=== PATIENT | male | born 1970 | race Caucasian/White ===

== ENCOUNTER 2017-09-20 06:48 | Emergency (ER) | payer BC, OTHER ==
[2017-09-20] MEDS ORDERED: NS 0.9% 1000 ML* 1,000 ML IV ONE (07:08)
[2017-09-20] MEDS ORDERED: Morphine VIAL* 4 MG/ML VIAL (1 ml vial) IV ONE (07:10)
[2017-09-20] MEDS ORDERED: Iodixanol* (CONTRAST) 320 MG/ML 100 ML SDV IV ONE (08:01)
[2017-09-20 08:04] LABS: ABS Basophils 0 10^3/ul (0-0.2); ABS Eosinophils 0.2 10^3/ul (0-0.6); ABS Lymphocytes 2.2 10^3/ul (1.0-4.8); ABS Neutrophils 6.5 10^3/ul (1.5-7.7); ABS Nucleated RBC 0 10^3/ul; Eosinophil % 2.2 % (0-6); Hematocrit 51 % (42-52); Hemoglobin 17.7 g/dl (14.0-18.0); Lymphocyte % 22.1 % (25-47); Mean Corpuscular HGB Conc 35 g/dl (31-36); Mean Corpuscular Hemoglobin 33 pg (27-31); Mean Corpuscular Volume 94 fL (80-94); Mean Platelet Volume 8.7 um3 (7.4-10.4); Nucleated Red Blood Cells % 0.2; Platelet Count 235 10^3/ul (150-450); Red Blood Count 5.38 10^6/ul (4.00-5.40); Red Cell Distribution Width 14 % (10.5-15); White Blood Count 9.9 10^3/ul (3.5-10.8)
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
[2017-09-20 09:07] LABS: Urine Appearance Clear; Urine Blood Negative (Negative); Urine Color Yellow; Urine Ketones Negative (Negative); Urine Protein Negative (Negative); Urine Specific Gravity 1.021 (1.010-1.030); Urine Urobilinogen Negative (Negative)
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
[2017-09-20] MEDS ORDERED: Ketorolac INJ* 30 MG/ML 1 ML VIAL IV PUSH ONE (10:01)
[2017-09-20 10:34] VITALS: BP 112/70
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
== END 2017-09-20 10:32 | disposition home or self-care (01) ==
LOC: ED 06:48
DX: M54.9 Dorsalgia, unspecified (principal); Z04.1 Encounter for examination and observation following transport accident; M25.511 Pain in right shoulder; M79.604 Pain in right leg; M50.90 Cervical disc disorder, unspecified, unspecified cervical region; M51.37 Other intervertebral disc degeneration, lumbosacral region; M43.06 Spondylolysis, lumbar region
CPT/HCPCS: 36415; 70450; 71260; 72125; 72128; 72131; 74177; 80053; 80307; 80320; 81003; 82550; 83605; 85025; 93005; 96361; 96374; 99283; G0480; J1885; J2270; Q9967

== ENCOUNTER 2018-08-20 13:27 | Emergency (ER) | payer BC, OTHER ==
[2018-08-20] MEDS ORDERED: Ibuprofen TAB* 600 MG PO ONE (13:36)
--- NOTE | 2018-08-20 13:43 | ED ---
Lower Extremity - HPI Summary HPI Summary: Patient is a 48 y/o male who presents to the ED c/o knee pain. Yesterday his 100 lb dog ran full-speed into the patients left kneecap, while he was standing with all his weight on his LLE. Patient today has left knee pain and swelling, rated a 7/10 in severity. Pain is constant. He is not able to bear weight on his leg. He denies any bruising to the knee. Patient denies the use of blood thinners. PMSHx back problems, arthroscopic left knee surgery. - History of Current Complaint Chief Complaint: EDExtremityLower Stated Complaint: POSS SPRAINED KNEE PER PT Time Seen by Provider: 08/20/18 13:34 Hx Obtained From: Patient Mechanism Of Injury: Other - dog ran into knee Onset of Pain: Days - Yesterday Severity Currently: Moderate Pain Intensity: 7 Pain Scale Used: 0-10 Numeric Timing: Constant Location: Is Discrete @ - left knee Associated Signs And Symptoms: Positive: Swelling, Knee Pain Able to Bear Weight: No - Allergies/Home Medications Allergies/Adverse Reactions: Allergies Allergy/AdvReac Type Severity Reaction Status Date / Time No Known Allergies Allergy Verified 08/20/18 13:32 Home Medications: Home Medications Gabapentin 300 mg PO BID 08/20/18 [History Confirmed 08/20/18] PMH/Surg Hx/FS Hx/Imm Hx Endocrine/Hematology History: Denies: Hx Diabetes Cardiovascular History: Denies: Hx Hypertension Musculoskeletal History: Reports: Hx Back Problems, Other Musculoskeletal History - "hole in cartilage behind left patella" - Surgical History Surgery Procedure, Year, and Place: arthroscopic left knee Infectious Disease History: No Infectious Disease History: Denies: Traveled Outside the [place] in Last 30 Days - Family History Known Family History: Negative: Cardiac Disease - Social History Alcohol Use: None Hx Substance Use: No Substance Use Type: Reports: None Hx Tobacco Use: No Smoking Status (MU): Never Smoked Tobacco Review of Systems Positive: Arthralgia - L knee, Edema - L knee Negative: Bruising All Other Systems Reviewed And Are Negative: Yes Physical Exam - Summary Physical Exam Summary: Appearance: well appearing, no pain distress, disheveled Skin: warm, dry, reflects adequate perfusion, left knee warmth, small effusion seen medial to left knee, wounds on left forearm Head/face: normal Eyes: EOMI, JESUS ENT: mucous membranes moist Neck: supple, non-tender Respiratory: CTA, breath sounds present Cardiovascular: RRR, pulses symmetrical Abdomen: non-tender, soft Bowel Sounds: present Musculoskeletal: strength/ROM intact, lots of pain with ligamentous exam of left knee Neuro: normal, sensory motor intact, A&Ox3 Triage Information Reviewed: Yes Vital Signs On Initial Exam: Initial Vitals Temp Pulse Resp BP Pulse Ox 98.8 F 102 18 125/87 98 08/20/18 13:29 08/20/18 13:29 08/20/18 13:29 08/20/18 13:29 08/20/18 13:29 Vital Signs Reviewed: Yes Diagnostics - Vital Signs Vital Signs Temp Pulse Resp BP Pulse Ox 08/20/18 13:29 98.8 F 102 18 125/87 98 - Laboratory Lab Statement: Any lab studies that have been ordered have been reviewed, and results considered in the medical decision making process. - Radiology Knee XR Radiology Interpretation Completed By: Radiologist Summary of Radiographic Findings: Normal knee radiograph as described above. If the patient's symptoms persist, follow-up imaging is recommended. ED physician reviewed radiology report. Lower Extremity Course/Dx - Course Course Of Treatment: Patient presents with left knee effusion after medial impact by his heavy dog. He appears to have internal derangement of the knee, likely ACL and possible LCL injury. Full exam is impossible due to his pain and swelling. He is placed in an [place] wrap, knee immobilizer and given crutches. He'll follow-up with orthopedics in the next few days for reevaluation. - Diagnoses Differential Diagnosis/HQI/PQRI: Positive: Fracture (Closed), Sprain, Strain Provider Diagnoses: Internal derangement of knee, Effusion, left knee Discharge - Sign-Out/Discharge Documenting (check all that apply): Patient Departure - Discharge Patient Received Moderate/Deep Sedation with Procedure: No - Discharge Plan Condition: Stable Disposition: HOME Prescriptions: Naproxen [Naproxen 500 mg tab] 500 mg PO BID PRN #14 tablet PRN Reason: Pain Patient Education Materials: ACL Injury (ED), Knee Immobilizer (ED) Referrals: Belinda North MD [Medical Doctor] - Esau Chu MD [Primary Care Provider] - Additional Instructions: Ice, Med[place]za wrap, elevate it rest. Immobilizer when he attempts to move. Do range of motion exercises every half hour and your knee. Call the orthopedist first thing in the morning to schedule prompt follow-up. Use crutches to assist with walking. You may bear weight. - Billing Disposition and Condition Condition: STABLE Disposition: Home - Attestation Statements Document Initiated by Gabriel: Yes Documenting Scribe: Consuelo Dudley Provider For Whom Gabriel is Documenting (Include Credential): Brady Richter MD Scribe Attestation: IConsuelo, scribed for Brady Richter MD on 08/20/18 at 1828. Scribe Documentation Reviewed: Yes Provider Attestation: The documentation as recorded by the Consuelo garrison accurately reflects the service I personally performed and the decisions made by , Brady Richter MD Status of Scribe Document: Viewed
--- OUTSIDE RECORDS SUMMARY | 2018-08-20 14:02 | XMS REPORT | Continuity of Care Document ---
:1970 External Reference #:[id number] Author Name Rafita Barron MD Address [address] [place] [address] Care Team Providers Name Role Phone Yohana Chu M.D. Care Team Information Title I Instructional Assistant Unavailable Payers Date Identification Numbers Payment Provider Subscriber Effective: 2009 Policy Number: [id number] [facility] Luna Bush Expires: 2009 Group Name: [employer] [address] [address] PayID: [id number] JEROD Bray 11518 Effective: 2009 Policy Number: [id number] [facility] Soo Bush Expires: 2012 Group Name: [employer] [address] [address] PayID: [id number] JEROD Bray [id number] Effective: 2012 Policy Number: [id number] [employer](Open [employer]) Soo Bush Expires: 2013 Group Number: [id number] [address] PayID: [id number] NOVA Chu [phone] Effective: 2013 Policy Number: [id number] [employer] Soo Suyovani Expires: 2014 PayID: [id number] [address] LASHONDA Mojica [id number] Effective: 2014 Policy Number: [id number] [facility] Soo Suyovani Expires: 2016 Group Name: [employer] [address] [address] PayID: [id number] JEROD Bray 259[address] Effective: 2016 Policy Number: [id number] [employer] Luna Bush PayID: [id number] [address] [address] JEROD Bray [id number] PayID: [id number] Workers Compensation Luna Bush Advance Directives Description No Information Available Problems Active Problems Provider Date Type II diabetes mellitus uncontrolled Yohana Chu M.D. Onset: 06/11/2010 Pure hypercholesterolemia Yohana Chu M.D. Onset: 06/11/2010 Family History Date Family Member(s) Observation Comments Father Unknown Left at age 2. No medical hx known. Mother Arthritis Mother Thyroid Disease Siblings 1 First Brother Non Contributory Maternal Grandfather Diabetes Maternal Grandfather due to NM () - in his 60's Maternal Grandfather CHF Maternal Grandmother Diabetes Maternal Grandmother due to Unknown Causes () Maternal Grandmother Alzheimer's Disease Social History Type Date Description Comments Sex Unknown Marital Status Lives With Spouse Lives With Son Lives With Daughter Lives With Mother Diet Diet varies His Mom cooks at home. Fast food about twice a week. 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 ETOH Use Drinks About 3 Drinks A formerly drank Year heavily Tobacco Use Start: Unknown End: Patient is a former Unknown smoker Exercise Type/Frequency Does not exercise walks the dog. Allergies, Adverse Reactions, Alerts Description No Known Drug Allergies Medications Active Medications SIG Qnty Indications Ordering Date Provider Bactrim DS take 1 tablet by 10tabs Rafita 03/28/2018 mouth every 12 MD Anderson 800-160mg Tablets hours for 5 days Tizanidine HCL 1 tab by mouth 90caps M54.2 Rafita 03/23/2018 4mg three times a day MD Anderson Capsules as needed Gabapentin 2 tab by mouth 180caps M54.2 Rafita 03/28/2017 300mg three times a day MD Anderson Capsules as needed. will cause sleepiness. Fluticasone 1 to 2 sprays in 16 J06.9 [facility] 01/31/2017 Propionate both nares once a Shortle, [employer] day for no more 50mcg/Act than one week Suspension Glucometer Please dispense a E11.65 Rafita 06/11/2015 glucometer and test MD Anderson strips and lancets as covered by insurance. Uncontrolled DM. Checks bid. Simvastatin 1 by mouth every 30tabs E11.65 Rafita 06/11/2015 20mg day MD Anderson Tablets Onetouch Ultra 2 Yohana Chu, 09/20/2013 M.D. w/Device Kit Glucometer with test strips, 100units E11.65 Yohana Chu, 09/20/2013 testing qd M.D. Glipizide 1 by mouth every 90tabs E11.65 Yohana Chu, 03/24/2011 10mg morning, 1/2 po qhs M.D. Tablets Onetouch testing bid, hx 100units Yohana Chu, 12/25/2010 Basic/Profile Test hypoglycemia. M.D. Strips Strips Metformin HCL 1 1/2 qam, 1 qhs 225tabs E11.65 Yohana Chu, 12/23/2009 M.D. 1000mg Tablets Ibuprofen one po every 8 60tabs 717.9 Shawnti R. 10/28/2009 800mg hours with food prn Storm, [employer] Tablets pain Lancets--One Touch use as directed 100units Yohana Chu, 06/27/2008 Ultra Soft M.D. Misc Rolaids Yohana Chu, 06/20/2008 Chewtabs M.D. History Medications Gabapentin take 1-2 capsules by 60caps M54.2 Rafita 03/14/2017 - 100mg mouth up to 3 times MD Anderson 03/28/2017 Capsules a day Triamcinolone apply to affected 30gm L60.3 Yohana Chu, 06/25/2015 - Acetonide area twice a day M.D. 01/31/2017 0.5% Cream Flexeril 1 tab by mouth three 45tabs Rafita 06/09/2015 - 10mg times a day MD Anderson 03/14/2017 Tablets Meloxicam 1 by mouth every day 30tabs Rafita 06/09/2015 - 15mg MD Anderson 01/31/2017 Tablets Byetta [place] for inj sc bid 60units Yohana Chu, 11/26/2011 - M.D. 05/02/2012 Byetta inject 5 mcg into 1.200ml 250.02 Yohana Chu, 11/24/2011 - 5mcg/0.02ML fatty tissue bid M.D. 05/02/2012 Solution before lunch and dinner Onetouch Basic testing qd 1units Yohana Chu, 12/25/2010 - System M.D. 03/25/2011 w/Device Kit Glipizide 1 po qd, do not take 30tabs Yohana Chu, 12/23/2010 - 5mg if not eating M.D. 03/24/2011 Tablets Januvia 1 po qd 90tabs 250.02 Yohana Chu, 08/21/2009 - 100mg M.D. 11/24/2011 Tablets Metformin HCL 1 po bid 180tabs 250.02 Yohana Chu, 01/03/2009 - M.D. 12/23/2009 1000mg Tablets Metformin HCL 1 po qd x 7 days, 180tabs Yohana Chu, 06/27/2008 - 500mg then 1 po bid M.D. 01/03/2009 Tablets Freestyle Test testing qd 100units Yohana Seymoure, 06/27/2008 - Strips M.D. 12/24/2010 Strips Clotrimazole apply to affected 30gm 110.3 Yohana Seymoure, 06/20/2008 - 1% area bid M.D. 04/20/2012 Cream Commit dissolve 1 lozenge 48units 305.1 Yohana Chu, 06/20/2008 - 4mg Lozenges by mouth as needed M.D. 01/31/2017 Sulf-10 1-2 gtts Each Eye 10ml 372.30 Wendi AJosephine 08/18/2007 - 10% qid Until SX Dharmesh, 10/24/2007 Solution Resolved For 5 Days [facility] No Work 08/18/07 due to 372.30 Wendi A. 08/18/2007 - conjunctivitis Dharmesh, 10/24/2007 [facility] Penicillin VK One PO bid For 10 20tabs 034.0 Wendi AJosephine 09/27/2006 - 500mg Days Dharmesh, 06/20/2007 Tablets [facility] Zithromax 2 on day one, then 1 6tabs Paulino Mejia, 02/21/2006 - 250mg qd x 4 days M.D. 06/28/2006 Tablets Augmentin one bid x 5 days 10tabs 382.00 Yohana Chu, 06/15/2004 - 875mg M.D. 09/23/2004 Tablets Wellbutrin SR one po qd x 7 days 60tabs 305.1 Yohana Chu, 06/10/2004 - 150mg then one bid M.D. 06/28/2006 Tablets Nicotrol Inhaler puff over 20 min 42units 305.1 Yohana Chu, 06/10/2004 - each M.D. 06/20/2008 10mg/Cart and inhaler system Cartridges Cortisporin Otic 5 gtts tid 10ml 380.22 Yohana Chu, 06/10/2004 - M.D. 06/25/2004 5mg;[id number];10mg/ML Suspension Excuse From Work No lifting or Yohana Chu, 02/12/2004 - repetitive motion of M.D. 03/13/2004 wrist until 02/19/04. Call if not improving by then. Immunizations CPT Code Status Date Vaccine Lot # [id number] Given 03/08/2017 Influenza Virus Vaccine, Quadrivalent, 3 Yr > [id number] Quad, Preserv Free 82339 Given 03/21/2015 Influenza Virus Vaccine, Quadrivalent, 3 Yr > [id number] Quad, Preserv Free 71660 Given 01/22/2013 Influenza Vaccine-Preservative Free 3 Yrs And [id number] Above 59948 Given 09/02/2011 Tdap (Adacel) [id number] 37943 Given 06/06/2003 DT (Adult) Vital Signs Date Vital Result Comment 08/04/2018 10:39am Weight 235.00 lb Weight 106.596 kg BP Systolic 140 mmHg BP Diastolic 72 mmHg Heart Rate 100 /min Body Temperature 98.9 F Respiratory Rate 18 /min 03/23/2018 4:40pm Weight 240.00 lb Weight 108.864 kg BP Systolic 138 mmHg BP Diastolic 90 mmHg Heart Rate 92 /min Body Temperature 99.1 F Respiratory Rate 16 /min 03/28/2017 8:51am Weight 252.00 lb Weight 114.307 kg BP Systolic 128 mmHg BP Diastolic 72 mmHg Heart Rate 82 /min Body Temperature 97.0 F Respiratory Rate 15 /min O2 % BldC Oximetry 98 % 03/14/2017 3:35pm Weight 255.00 lb Weight 115.668 kg BP Systolic 130 mmHg BP Diastolic 76 mmHg Heart Rate 83 /min Body Temperature 97.7 F Respiratory Rate 18 /min O2 % BldC Oximetry 95 % 01/31/2017 2:29pm Weight 255.00 lb Weight 115.668 kg BP Systolic 98 mmHg BP Diastolic 71 mmHg Heart Rate 100 /min 91 Body Temperature 98.8 F O2 % BldC Oximetry 96 % 11/27/2015 4:14pm Weight 256.00 lb Weight 116.122 kg BP Systolic 110 mmHg BP Diastolic 62 mmHg Heart Rate 84 /min Body Temperature 98.4 F Respiratory Rate 20 /min 08/28/2015 4:25pm Weight 254.00 lb Weight 115.214 kg BP Systolic 120 mmHg BP Diastolic 74 mmHg Heart Rate 76 /min 06/25/2015 10:51am Weight 267.00 lb Weight 121.111 kg BP Systolic 130 mmHg BP Diastolic 76 mmHg Heart Rate 96 /min 06/11/2015 9:15am Weight 269.00 lb Weight 122.018 kg BP Systolic 112 mmHg BP Diastolic 76 mmHg Heart Rate 104 /min 06/09/2015 10:22am Weight 269.00 lb Weight 122.018 kg BP Systolic 130 mmHg BP Diastolic 70 mmHg Heart Rate 84 /min 09/20/2013 10:32am Weight 294.00 lb Weight 133.358 kg BP Systolic 116 mmHg BP Diastolic 78 mmHg Heart Rate 96 /min Height 73.5 inches 6'1.50" BMI (Body Mass Index) 38.3 kg/m2 05/03/2012 9:39am Weight 293.00 lb Weight 132.905 kg BP Systolic 124 mmHg BP Diastolic 72 mmHg Heart Rate 86 /min O2 % BldC Oximetry 97 % 11/24/2011 10:01am Weight 304.00 lb Weight 137.894 kg BP Systolic 112 mmHg BP Diastolic 66 mmHg Heart Rate 72 /min Height 72.75 inches 6'0.75" BMI (Body Mass Index) 40.4 kg/m2 09/02/2011 9:15am Weight 302.00 lb Weight 136.987 kg BP Systolic 110 mmHg BP Diastolic 70 mmHg Heart Rate 96 /min 07/01/2011 10:10am Weight 304.00 lb Weight 137.894 kg BP Systolic 120 mmHg BP Diastolic 80 mmHg Heart Rate 72 /min 03/24/2011 9:59am Weight 298.00 lb Weight 135.173 kg BP Systolic 102 mmHg BP Diastolic 60 mmHg Heart Rate 100 /min 12/23/2010 10:07am Weight 307.00 lb Weight 139.255 kg BP Systolic 120 mmHg BP Diastolic 78 mmHg Heart Rate 88 /min Body Temperature 97.3 F 09/18/2010 11:25am Weight 310.00 lb Weight 140.616 kg BP Systolic 110 mmHg BP Diastolic 70 mmHg Heart Rate 88 /min 06/11/2010 9:57am Weight 312.00 lb Weight 141.523 kg BP Systolic 110 mmHg BP Diastolic 70 mmHg Heart Rate 80 /min 03/13/2010 10:42am Weight 304.00 lb Weight 137.894 kg BP Systolic 124 mmHg BP Diastolic 80 mmHg Heart Rate 72 /min 12/23/2009 9:52am Weight 316.00 lb Weight 143.338 kg BP Systolic 128 mmHg BP Diastolic 78 mmHg Heart Rate 88 /min O2 % BldC Oximetry 97 % 10/28/2009 8:44am Weight 315.00 lb Weight 142.884 kg BP Systolic 114 mmHg BP Diastolic 78 mmHg Heart Rate 80 /min Body Temperature 97.5 F 08/21/2009 9:49am Weight 310.00 lb Weight 140.616 kg BP Systolic 110 mmHg BP Diastolic 78 mmHg Heart Rate 100 /min Height 71 inches 5'11" BMI (Body Mass Index) 43.2 kg/m2 04/15/2009 9:25am Weight 306.00 lb Weight 138.802 kg BP Systolic 120 mmHg BP Diastolic 70 mmHg Heart Rate 76 /min 01/03/2009 9:48am Weight 324.00 lb Weight 146.966 kg BP Systolic 124 mmHg BP Diastolic 80 mmHg Heart Rate 88 /min 09/27/2008 11:17am Weight 324.00 lb Weight 146.966 kg BP Systolic 126 mmHg BP Diastolic 82 mmHg Heart Rate 88 /min 07/30/2008 10:06am Weight 316.00 lb Weight 143.338 kg BP Systolic 122 mmHg BP Diastolic 70 mmHg Heart Rate 68 /min 06/27/2008 10:02am Weight 331.00 lb Weight 150.142 kg BP Systolic 140 mmHg BP Diastolic 90 mmHg Heart Rate 78 /min 06/20/2008 8:33am Weight 331.00 lb Weight 150.142 kg BP Systolic 134 mmHg BP Diastolic 82 mmHg Heart Rate 88 /min Height 73 inches 6'1" BMI (Body Mass Index) 43.7 kg/m2 10/24/2007 4:50pm BP Systolic 132 mmHg BP Diastolic 72 mmHg Heart Rate 76 /min Height 73 inches 6'1" 10/11/2007 3:53pm Weight 327.00 lb Weight 148.327 kg BP Systolic 130 mmHg BP Diastolic 70 mmHg Heart Rate 72 /min Height 73 inches 6'1" BMI (Body Mass Index) 43.1 kg/m2 09/20/2007 10:49am Weight 321.00 lb Weight 145.606 kg BP Systolic 122 mmHg BP Diastolic 74 mmHg Heart Rate 92 /min Height 73 inches 6'1" BMI (Body Mass Index) 42.3 kg/m2 08/18/2007 11:00am Weight 324.00 lb Weight 146.966 kg BP Systolic 140 mmHg BP Diastolic 80 mmHg Body Temperature 97.6 F Oral Height 73 inches 6'1" BMI (Body Mass Index) 42.7 kg/m2 06/20/2007 2:30pm Weight 322.00 lb Weight 146.059 kg BP Systolic 138 mmHg BP Diastolic 72 mmHg Heart Rate 100 /min Height 73 inches 6'1" BMI (Body Mass Index) 42.5 kg/m2 04/17/2007 2:10pm Weight 313.00 lb Weight 141.977 kg BP Systolic 124 mmHg BP Diastolic 74 mmHg Heart Rate 84 /min Height 74 inches 6'2" BMI (Body Mass Index) 40.2 kg/m2 Last Menstrual Period 0 O2 % BldC Oximetry 95 % 09/27/2006 11:43am Weight 329.00 lb Weight 149.234 kg BP Systolic 118 mmHg BP Diastolic 76 mmHg Heart Rate 96 /min Body Temperature 100.4 F Height 74 inches 6'2" BMI (Body Mass Index) 42.2 kg/m2 O2 % BldC Oximetry 94 % 06/28/2006 9:48am Weight 327.00 lb Weight 148.327 kg BP Systolic 126 mmHg BP Diastolic 64 mmHg Heart Rate 76 /min Height 74 inches 6'2" BMI (Body Mass Index) 42.0 kg/m2 02/21/2006 4:05pm Weight 321.00 lb Weight 145.606 kg BP Systolic 120 mmHg BP Diastolic 80 mmHg Heart Rate 80 /min Respiratory Rate 20 /min Height 74 inches 6'2" BMI (Body Mass Index) 41.2 kg/m2 08/03/2005 3:01pm Weight 305.00 lb Weight 138.348 kg BP Systolic 136 mmHg BP Diastolic 76 mmHg Height 74 inches 6'2" BMI (Body Mass Index) 39.2 kg/m2 06/22/2005 8:44am Weight 302.00 lb Weight 136.987 kg BP Systolic 120 mmHg BP Diastolic 80 mmHg Heart Rate 74 /min Height 74 inches 6'2" BMI (Body Mass Index) 38.8 kg/m2 07/07/2004 10:02am Weight 288.00 lb Weight 130.637 kg BP Systolic 118 mmHg BP Diastolic 76 mmHg Heart Rate 97.2 /min Height 72 inches 6'0" BMI (Body Mass Index) 39.1 kg/m2 06/25/2004 4:31pm BP Systolic 118 mmHg BP Diastolic 76 mmHg Heart Rate 92 /min Body Temperature 98.3 F Height 72 inches 6'0" 06/15/2004 4:44pm Weight 300.00 lb Weight 136.080 kg BP Systolic 130 mmHg BP Diastolic 70 mmHg Body Temperature 97.7 F Height 72 inches 6'0" BMI (Body Mass Index) 40.7 kg/m2 06/10/2004 8:54am Weight 290.00 lb Weight 131.544 kg BP Systolic 128 mmHg BP Diastolic 72 mmHg Heart Rate 80 /min Height 72 inches 6'0" BMI (Body Mass Index) 39.3 kg/m2 02/12/2004 10:41am Weight 283.00 lb Weight 128.369 kg BP Systolic 110 mmHg BP Diastolic 70 mmHg Height 72 inches 6'0" BMI (Body Mass Index) 38.4 kg/m2 12/06/2003 11:13am Weight 280.00 lb Weight 127.008 kg BP Systolic 129 mmHg BP Diastolic 81 mmHg Heart Rate 74 /min Body Temperature 97.2 F Respiratory Rate 18 /min Height 72 inches 6'0" BMI (Body Mass Index) 38.0 kg/m2 06/06/2003 1:29pm Weight 281.00 lb Weight 127.462 kg BP Systolic 110 mmHg BP Diastolic 60 mmHg Heart Rate 66 /min Respiratory Rate 18 /min Height 72 inches BMI (Body Mass Index) 38.1 kg/m2 Results Test Date Facility Test Result H/L Range Note Laboratory test 03/23/2018 [facility] Hemoglobin A1c 10.1 % High 4.0-5.6 1, 2 finding [phone] Comp Metabolic 03/23/2018 [facility] Sodium 135 mmol/ L N 135-145 Panel [phone] Potassium 4.3 mmol/L N 3.5-5.0 Chloride 103 mmol/L N 101-111 Co2 Carbon Dioxide 22 mmol/L N 22-32 Anion Gap 10 mmol/L N 2-11 Glucose 268 mg/dL High 70-100 Blood Urea Nitrogen 13 mg/dL N 6-24 Creatinine 0.86 mg/dL N 0.67-1.17 BUN/Creatinine Ratio 15.1 N 8-20 Calcium 9.4 mg/dL N 8.6-10.3 Total Protein 7.0 g/dL N 6.4-8.9 Albumin 4.6 g/dL N 3.2-5.2 Globulin 2.4 g/dL N 2-4 Albumin/Globulin Ratio 1.9 N 1-3 Total Bilirubin 0.50 mg/dL N 0.2-1.0 Alkaline Phosphatase 81 U/L N 34-104 Alt 28 U/L N 7-52 Ast 17 U/L N 13-39 Egfr Non- 95.7 >60 Egfr 115.8 >60 3 [facility] - Comprehensive 03/23/2018 [facility] Albumin <pending> Metabolic SGPT (Alt) <pending> Calcium <pending> Carbon Dioxide <pending> Chloride <pending> Creatinine <pending> Glucose <pending> Alkaline Phosphatase <pending> Potassium <pending> Protien, Total <pending> Sodium <pending> Sgot (Ast) <pending> BUN - Urea Nitrogen <pending> Bilirubin, Total <pending> CBC W/Auto Differential 03/23/2018 [facility] Hematocrit < pending> MCV (Corpuscular Volume) <pending> MCH (Corpuscular Hemoglobin) <pending> MCHC (Corpuscular Hemog Conc) <pending> RDW <pending> MPV <pending> Neutrophils <pending> Monocytes <pending> Absolute Basophils <pending> Absolute Eosinophils <pending> Absolute Lymphocytes <pending> Absolute Monocytes <pending> CBC Auto 03/23/2018 [facility] White Blood 13.0 10^3/ uL High 3.5-10.8 Diff [phone] Count Red Blood Count 5.78 10^6/uL High 4.00-5.40 Hemoglobin 18.9 g/dL High 14.0-18.0 Hematocrit 54 % High 42-52 Mean Corpuscular Volume 94 fL N 80-94 Mean Corpuscular Hemoglobin 33 pg High 27-31 Mean Corpuscular HGB Conc 35 g/dL N 31-36 Red Cell Distribution Width 14 % N 10.5-15 Platelet Count 258 10^3/uL N 150-450 Mean Platelet Volume 9.9 fL N 7.4-10.4 Abs Neutrophils 9.0 10^3/uL High 1.5-7.7 Abs Lymphocytes 2.8 10^3/uL N 1.0-4.8 Abs Monocytes 0.9 10^3/uL High 0-0.8 Abs Eosinophils 0.2 10^3/uL N 0-0.6 Abs Basophils 0 10^3/uL N 0-0.2 Abs Nucleated RBC 0 10^3/uL Granulocyte % 69.3 % Lymphocyte % 21.5 % Monocyte % 7.1 % Eosinophil % 1.8 % Basophil % 0.3 % Nucleated Red Blood Cells % 0.1 Laboratory test 03/23/2018 [facility] Hemoglobin A1c <pending > finding Urinalysis Profile 09/20/2017 [facility] Urine Color Yellow [phone] Urine Appearance Clear Urine Specific [place] 1.021 N 1.010-1.030 Urine pH 6.0 N 5-9 Urine Urobilinogen Negative Negative Urine Ketones Negative Negative Urine Protein Negative Negative Urine Leukocytes Negative Negative Urine Blood Negative Negative Urine Nitrite Negative Negative Urine Bilirubin Negative Negative Urine Glucose 3+(>=500 mg/dL) Abnormal Negative Urine Drug 09/20/2017 [facility] Amphetamine Ur None Detected None Detect SCR ED & [phone] Screen Pain Clinic Barbiturates Urine Screen None Detected None Detect Benzodiazepine Urine Screen None Detected None Detect Urine Cannabinoids Screen None Detected None Detect Urine Cocaine Screen None Detected None Detect Urine Opiates Screen Presumptive Posi <SEE NOTE> Abnormal None Detect 4 Urine Phencyclidine Screen None Detected None Detect 5 CBC Auto Diff 09/20/2017 [facility] White Blood 9.9 10^3/uL N 3.5-10.8 [phone] Count Red Blood Count 5.38 10^6/uL N 4.00-5.40 Hemoglobin 17.7 g/dL N 14.0-18.0 Hematocrit 51 % N 42-52 Mean Corpuscular Volume 94 fL N 80-94 Mean Corpuscular Hemoglobin 33 pg High 27-31 Mean Corpuscular HGB Conc 35 g/dL N 31-36 Red Cell Distribution Width 14 % N 10.5-15 Platelet Count 235 10^3/uL N 150-450 Mean Platelet Volume 8.7 um3 N 7.4-10.4 Abs Neutrophils 6.5 10^3/uL N 1.5-7.7 Abs Lymphocytes 2.2 10^3/uL N 1.0-4.8 Abs Monocytes 1.0 10^3/uL High 0-0.8 Abs Eosinophils 0.2 10^3/uL N 0-0.6 Abs Basophils 0 10^3/uL N 0-0.2 Abs Nucleated RBC 0 10^3/uL Granulocyte % 65.5 % N 38-83 Lymphocyte % 22.1 % Low 25-47 Monocyte % 9.8 % High 0-7 Eosinophil % 2.2 % N 0-6 Basophil % 0.4 % N 0-2 Nucleated Red Blood Cells % 0.2 Laboratory test 09/20/2017 [facility] Lactic Acid 1.8 mmol/L N 0.5-2.0 6 finding [phone] Comp Metabolic 09/20/2017 [facility] Sodium 134 mmol/ L Low 139-145 Panel [phone] Potassium 4.1 mmol/L N 3.5-5.0 Chloride 104 mmol/L N 101-111 Co2 Carbon Dioxide 23 mmol/L N 22-32 Anion Gap 7 mmol/L N 2-11 Glucose 239 mg/dL High 70-100 Blood Urea Nitrogen 14 mg/dL N 6-24 Creatinine 0.85 mg/dL N 0.67-1.17 BUN/Creatinine Ratio 16.5 N 8-20 Calcium 9.0 mg/dL N 8.6-10.3 Total Protein 6.5 g/dL N 6.4-8.9 Albumin 4.1 g/dL N 3.2-5.2 Globulin 2.4 g/dL N 2-4 Albumin/Globulin Ratio 1.7 N 1-3 Total Bilirubin 0.50 mg/dL N 0.2-1.0 Alkaline Phosphatase 73 U/L N 34-104 Alt 17 U/L N 7-52 Ast 14 U/L N 13-39 Egfr Non- 97.0 >60 Egfr 124.8 >60 7 Laboratory test 09/20/2017 [facility] Creatine Kinase 75 U/L N 10-223 finding [phone] Alcohol < 10 mg/dL N <10 Laboratory test 03/28/2017 [facility] Hemoglobin A1c 9.3 % High 4.0-5.6 8 finding [phone] (Glyco HGB) Statin 03/28/2017 [facility] Ast (Sgot) 14 U/L N 13 -39 9 [phone] Alt 21 U/L N 7-52 10 Lipid Profile 03/28/2017 [facility] Triglycerides 318 mg/dL 11 (Trig/Chol/HDL) [phone] Cholesterol 180 mg/dL 12 HDL Cholesterol 30.8 mg/dL 13 LDL Cholesterol 86 mg/dL 14 Urine Microalbumin 01/31/2017 [facility] Ur Microalbumin < 15.0 N Random [phone] (mg/L) mg/L Urine Creatinine 229.52 mg/dL N Urine Microalbumin/Creatinine TNP ug/mg N <31 15 Laboratory 01/31/2017 [facility] Strep Screen <pending> test finding Laboratory 11/20/2015 [facility] Hemoglobin A1c 8.8 % High Less 16 test finding [phone] (Glyco HGB) than 6.0 Laboratory 10/30/2015 [facility] Surgical SEE RESULT 17, test finding [phone] Pathology BELOW 18 Laboratory 06/09/2015 [facility] Hemoglobin A1c 10.0 % High Less 19 test finding [phone] (Glyco HGB) than 6.0 Lipid Profile 06/09/2015 [facility] Triglycerides 378 mg/dL N 20 (Trig/Chol/HDL [phone] ) Cholesterol 196 mg/dL N 21 HDL Cholesterol 34.9 mg/dL N 22 LDL Cholesterol 86 mg/dL N 23 Comp Metabolic Panel 06/09/2015 [facility] Sodium 133 mmol/L N 133-145 [phone] Potassium 4.5 mmol/L N 3.5-5.0 Chloride 100 mmol/L Low 101-111 Co2 Carbon Dioxide 24 mmol/L N 22-32 Anion Gap 9 mmol/L N 2-11 Glucose 209 mg/dL High 70-100 Blood Urea Nitrogen 12 mg/dL N 6-24 Creatinine 0.87 mg/dL N 0.67-1.17 BUN/Creatinine Ratio 13.8 N 8-20 Calcium 9.4 mg/dL N 8.6-10.3 Total Protein 7.1 g/dL N 6.4-8.9 Albumin 4.8 g/dL N 3.2-5.2 Globulin 2.3 g/dL N 2-4 Albumin/Globulin Ratio 2.1 N 1-3 Total Bilirubin 0.70 mg/dL N 0.2-1.0 Alkaline Phosphatase 82 U/L N 34-104 Alt 26 U/L N 7-52 Ast 19 U/L N 13-39 Egfr Non- 95.3 N >60 Egfr 122.6 N >60 24 CBC Auto 06/09/2015 [facility] White Blood 11.3 10^3/ uL High 3.5-10.8 Diff [phone] Count Red Blood Count 5.73 10^6/uL High 4.0-5.4 Hemoglobin 18.2 g/dL High 14.0-18.0 Hematocrit 55 % High 42-52 Mean Corpuscular Volume 96 fL High 80-94 Mean Corpuscular Hemoglobin 32 pg High 27-31 Mean Corpuscular HGB Conc 33 g/dL N 31-36 Red Cell Distribution Width 13 % N 10.5-15 Platelet Count 259 10^3/uL N 150-450 Mean Platelet Volume 10 um3 N 7.4-10.4 Abs Neutrophils 7.9 10^3/uL High 1.5-7.7 Abs Lymphocytes 2.3 10^3/uL N 1.0-4.8 Abs Monocytes 0.9 10^3/uL High 0-0.8 Abs Eosinophils 0.1 10^3/uL N 0-0.6 Abs Basophils 0 10^3/uL N 0-0.2 Abs Nucleated RBC 0.01 10^3/uL N Granulocyte % 70.0 % N 38-83 Lymphocyte % 20.1 % Low 25-47 Monocyte % 8.4 % N 1-9 Eosinophil % 1.2 % N 0-6 Basophil % 0.3 % N 0-2 Nucleated Red Blood Cells % 0.1 N Urine Microalbumin 06/09/2015 [facility] Ur Microalbumin 15.0 mg/L N Random [phone] (mg/L) Urine Creatinine 112.50 mg/dL N Urine Microalbumin/Creatinine 13.3 ug/mg N <31 Lipid Profile 09/13/2013 [facility] Triglycerides 407 mg/dL N 25, 26 (Trig/Chol/HDL) [phone] Cholesterol 173 mg/dL N 27 HDL Cholesterol 27.5 mg/dL N 28 LDL Cholesterol (SEE NOTE) mg/dL N 29 Laboratory test 09/13/2013 [facility] Hemoglobin A1c 11.1 % High Less 30 finding [phone] than 6.0 Laboratory test 05/03/2012 [facility] Hemoglobin A1c 9.6 % High Less 31 finding [phone] than 6.0 Comp Metabolic 05/03/2012 [facility] Sodium 132 Low 133-145 Panel [phone] mmol/L Potassium 4.4 mmol/L 3.5-5.0 Chloride 101 mmol/L 101-111 Co2 Carbon Dioxide 22.0 mmol/L 22-32 Anion Gap 9.0 mmol/L 2-11 Glucose 197 mg/dL High 70-100 Blood Urea Nitrogen 9 mg/dL 6-24 Creatinine 0.80 mg/dL 0.50-1.40 BUN/Creatinine Ratio 11.3 8-20 Calcium 9.0 mg/dL 8.1-9.9 Total Protein 6.7 g/dL 6.2-8.1 Albumin 4.2 g/dL 3.6-5.4 Globulin 2.5 g/dL 2-4 Albumin/Globulin Ratio 1.7 1-3 Total Bilirubin 0.7 mg/dL 0.4-1.5 Alkaline Phosphatase 83 U/L 30-110 Alt 33 U/L 14-54 Ast 23 U/L 12-42 Egfr Non- 107.1 >60 Egfr 137.7 >60 32 Lipid Profile 11/17/2011 [facility] Triglyceride 462 mg/dL High 40-200 (Trig/Chol/HDL) [phone] Cholesterol 188 mg/dL Less Than 200 33 High Density Lipoprotein 34 mg/dL Low 40-60 34 Cholesterol/HDL Ratio 5.53 AVERAGE High 1-4.97 Low Density Lipoprotein (SEE NOTE) mg/dL Less Than 100 35 Laboratory test 11/17/2011 [facility] Hemoglobin A1c 9.2 % High Less Than 36 finding [phone] 6.0 Laboratory test 06/21/2011 [facility] Hemoglobin A1c 9.4 % High Less Than 37 finding [phone] 6.0 Lipid Profile 06/21/2011 [facility] Triglyceride 488 High 40-200 (Trig/Chol/HDL) [phone] mg/dL Cholesterol 186 mg/dL Less Than 200 38 High Density Lipoprotein 29 mg/dL Low 40-60 39 Cholesterol/HDL Ratio 6.41 AVERAGE High 1-4.97 Low Density Lipoprotein (SEE NOTE) mg/dL Less Than 100 40 Laboratory test 03/17/2011 [facility] Hemoglobin A1c 8.8 % High Less Than 41 finding [phone] 6.0 Lipid Profile 03/17/2011 [facility] Triglyceride 342 High 40-200 (Trig/Chol/HDL) [phone] mg/dL Cholesterol 208 mg/dL High Less Than 200 42 High Density Lipoprotein 31 mg/dL Low 40-60 43 Cholesterol/HDL Ratio 6.71 AVERAGE High 1-4.97 Low Density Lipoprotein 109 mg/dL High Less Than 100 44 Comp Metabolic Panel 03/17/2011 [facility] Sodium 136 mmol/L 135-145 [phone] Potassium 4.8 mmol/L 3.5-5.0 Chloride 102 mmol/L 101-111 Co2 (Carbon Dioxide) 24.0 mmol/L 22-32 Anion Gap 10.0 mmol/L 2-11 45 Glucose 206 mg/dL High 70-100 BUN 13 mg/dL 6-24 Creatinine 1.1 mg/dL 0.50-1.40 One Over Creatinine 0.90 BUN/Creatinine Ratio 11.8 8-20 Calcium 9.7 mg/dL 8.1-9.9 Total Protein 6.7 GM/DL 6.2-8.1 Albumin 4.3 GM/DL 3.6-5.4 Globulin 2.4 GM/DL 2-4 Albumin/Globulin Ratio 1.8 1-3 Bilirubin Total 1.0 mg/dL 0.4-1.5 46 Alkaline Phosphatase 84 U/L 39-117 Alt (SGPT) 35 U/L 17-63 Ast (Sgot) 26 U/L 12-42 eGFR Non- 74.5 > 60 eGFR 95.8 > 60 47 Laboratory test 12/16/2010 [facility] Hemoglobin A1c 8.7 % High Less Than 48 finding [phone] 6.0 Laboratory test 09/09/2010 [facility] Hemoglobin A1c 8.6 % High Less Than 49 finding [phone] Lipid Profile 09/09/2010 [facility] Triglyceride 294 High 40-200 (Trig/Chol/HDL) [phone] mg/dL Cholesterol 159 mg/dL Less Than 200 50 High Density Lipoprotein 30 mg/dL Low 40-60 51 Cholesterol/HDL Ratio 5.30 AVERAGE High 1-4.97 Low Density Lipoprotein 70 mg/dL Less Than 100 52 Laboratory test 09/09/2010 [facility] LDL Direct 68 mg/dL Less 53 finding [phone] Than 100 Laboratory test 06/04/2010 [facility] Hemoglobin A1c 8.3 % High Less 54 finding [phone] Than 6.0 Lipid Profile 06/04/2010 [facility] Triglyceride 405 mg/dL High 40-200 (Trig/Chol/HDL) [phone] Cholesterol 182 mg/dL Less Than 200 55 High Density Lipoprotein 28 mg/dL Low 40-60 56 Cholesterol/HDL Ratio 6.50 AVERAGE High 1-4.97 Low Density Lipoprotein (SEE NOTE) mg/dL Less Than 100 57 Laboratory test 03/13/2010 [facility] Hemoglobin A1c 7.8 % High Less Than 58 finding [phone] 6.0 Laboratory test 12/19/2009 [facility] Hemoglobin A1c 8.1 % High Less Than 59 finding [phone] 6.0 Statin 12/19/2009 [facility] Ast (Sgot) 23 U/L 12- 42 [phone] Alt (SGPT) 31 U/L 17-63 Lipid Profile 12/19/2009 [facility] Triglyceride 459 mg/dL High 40-200 (Trig/Chol/HDL) [phone] Cholesterol 177 mg/dL Less Than 200 60 High Density Lipoprotein 25 mg/dL Low 40-60 61 Cholesterol/HDL Ratio 7.08 AVERAGE High 1-4.97 Low Density Lipoprotein (SEE NOTE) mg/dL Less Than 100 62 Urine DIP 08/21/2009 [facility] Leukocytes NEG Neg (607)- - Urine Nitrites NEG Neg Urine pH 5 5-6 Total Protein, Urine TRACE Neg Urine Glucose NORM Norm Urine Ketones NEG Neg Urobilinogen NORM Norm Urine Bilirubin NEG Neg Urine Blood NEG Neg Specific [place] NA Low 1.01-1.02 Laboratory test 07/04/2009 [facility] Hemoglobin A1c 7.6 % High Less Than 63 finding [phone] Lipid Profile 07/04/2009 [facility] Triglyceride 441 High 40-200 (Trig/Chol/HDL) [phone] mg/dL Cholesterol 172 mg/dL Less Than 200 64 High Density Lipoprotein 25 mg/dL Low 40-60 65 Cholesterol/HDL Ratio 6.88 AVERAGE High 1-4.97 Low Density Lipoprotein (SEE NOTE) mg/dL Less Than 100 66 Laboratory test 07/04/2009 [facility] LDL Direct 69 mg/dL Less Than 67 finding [phone] Comp Metabolic 07/04/2009 [facility] Sodium 134 mmol/ L Low 135-145 Panel [phone] Potassium 4.2 mmol/L 3.5-5.0 Chloride 99 mmol/L Low 101-111 Co2 (Carbon Dioxide) 24.0 mmol/L 22-32 Anion Gap 11.0 mmol/L 2-11 68 Glucose 150 mg/dL High 70-100 69 BUN 14 mg/dL 6-24 Creatinine 1.20 mg/dL 0.50-1.40 One Over Creatinine 0.80 BUN/Creatinine Ratio 11.7 8-20 Calcium 9.3 mg/dL 8.1-9.9 70 Total Protein 6.7 GM/DL 6.2-8.1 Albumin 4.4 GM/DL 3.6-5.4 Globulin 2.3 GM/DL 2-4 Albumin/Globulin Ratio 1.9 1-3 Bilirubin Total 0.9 mg/dL 0.4-1.5 71 Alkaline Phosphatase 78 U/L 39-117 Alt (SGPT) 39 U/L 17-63 Ast (Sgot) 30 U/L 12-42 eGFR Non- 72.0 > 60 eGFR 87.1 > 60 72 Urine Microalbumin 04/15/2009 [facility] Microalbumin 11.0 mg/L Random [phone] (MG/L) Urine Creatinine 159.77 mg/dL Kyler Alb/Creatinine Ratio 6.8 UG/MG Less Than 30 73 Laboratory test 04/15/2009 [facility] Hemoglobin A1c 7.6 % High Less Than 74 finding [phone] 6.0 Laboratory test 12/27/2008 [facility] Hemoglobin A1c 7.7 % High Less Than 75 finding [phone] Lipid Profile 12/27/2008 [facility] Triglyceride 284 High 40-200 (Trig/Chol/HDL) [phone] mg/dL Cholesterol 161 mg/dL Less Than 200 76 High Density Lipoprotein 25 mg/dL Low 40-60 77 Cholesterol/HDL Ratio 6.44 AVERAGE High 1-4.97 Low Density Lipoprotein 79 mg/dL Less Than 100 78 Laboratory test 12/27/2008 [facility] LDL Direct 87 mg/dL Less Than 100 79 finding [phone] Gcchlu 09/29/2008 [facility] GC On Urine NEGATIVE Negative 80 [phone] Chlamydia On Urine NEGATIVE Negative 81 CMP Stat 09/28/2008 [facility] Sodium 137 mmol/L 135-145 [phone] Potassium 4.3 mmol/L 3.5-5.0 Chloride 103 mmol/L 101-111 Co2 (Carbon Dioxide) 26.0 mmol/L 22-32 Anion Gap 8.0 mmol/L 2-11 82 Glucose 132 mg/dL High 70-100 83 BUN 15 mg/dL 6-24 Creatinine 0.96 mg/dL 0.50-1.40 One Over Creatinine 1.00 BUN/Creatinine Ratio 15.6 8-20 Calcium 8.6 mg/dL 8.1-9.9 84 Total Protein 7.5 GM/DL 6.2-8.1 Albumin 4.5 GM/DL 3.6-5.4 Globulin 3.0 GM/DL 2-4 Albumin/Globulin Ratio 1.5 1-3 Bilirubin Total 0.7 mg/dL 0.4-1.5 85 Alkaline Phosphatase 85 U/L 39-117 Alt (SGPT) 31 U/L 17-63 Ast (Sgot) 26 U/L 12-42 Erythrocyte Sed 09/28/2008 [facility] Erythrocyte Sed 17 MM/HR High 0-15 Rate Stat [phone] Rate CBC With Manual 09/28/2008 [facility] White Blood 15.3 CUMM High 4.8-10.8 Diff [phone] Count Red Cell Count 4.93 CUMM 4.6-6.2 Hemoglobin 15.9 g/dL 14.0-18.0 Hematocrit 46 % 42-52 Mean Corpuscular Volume 93 um3 80-94 Mean Corpuscular Hemoglob 32 pg High 27-31 Mean Corpuscular HGB Cone 35 g/dL 32-36 Redcell Distribution WDTH 14 % 10.5-15 Platelet Count 277 CUMM 150-450 Mean Platelet Volume 8.0 um3 7.4-10.4 Polysegmented Neutrophil 76 % 38-83 Lymphocyte 15 % Low 25-47 Monocyte 5 % 0-13 Eosenophil 2 % 0-6 Atypical Lymph 2 % 0-6 Absolute Neutrophil Count 11.6 Anisocytosis SLIGHT Lipid Profile 09/24/2008 [facility] Triglyceride 403 mg/dL High 40-200 (Trig/Chol/HDL) [phone] Cholesterol 168 mg/dL Less Than 200 86 High Density Lipoprotein 26 mg/dL Low 40-60 87 Cholesterol/HDL Ratio 6.46 AVERAGE High 1-4.97 Low Density Lipoprotein (SEE NOTE) mg/dL Less Than 100 88 Laboratory test 09/24/2008 [facility] Hemoglobin A1c 7.6 % High <6.0 89 finding [phone] Comp Metabolic 09/24/2008 [facility] Sodium 138 135-145 Panel [phone] mmol/L Potassium 4.2 mmol/L 3.5-5.0 Chloride 107 mmol/L 101-111 Co2 (Carbon Dioxide) 23.0 mmol/L 22-32 Anion Gap 8.0 mmol/L 2-11 90 Glucose 148 mg/dL High 70-100 91 BUN 10 mg/dL 6-24 Creatinine 1.00 mg/dL 0.50-1.40 One Over Creatinine 1.00 BUN/Creatinine Ratio 10.0 8-20 Calcium 9.2 mg/dL 8.1-9.9 92 Total Protein 6.0 GM/DL Low 6.2-8.1 Albumin 4.0 GM/DL 3.6-5.4 Globulin 2.0 GM/DL 2-4 Albumin/Globulin Ratio 2.0 1-3 Bilirubin Total 0.5 mg/dL 0.4-1.5 93 Alkaline Phosphatase 90 U/L 39-117 Alt (SGPT) 30 U/L 17-63 Ast (Sgot) 20 U/L 12-42 Laboratory 06/25/2008 [facility] TSH 4.860 0.350-5.500 test finding [phone] (Thyrotropin) uIU/ml CBC 06/25/2008 [facility] WBC 12.3 x103 High 4.3-10.9 [phone] RBC 5.20 x106 4.70-6.20 Hemoglobin 16.4 g/dL 13.0-17.0 Hematocrit 49.9 % 39.0-50.0 MCV 96.0 fl 82.0-98.0 MCH 31.5 pg 27.5-33.5 MCHC 32.9 g/dL 32.0-36.0 RDW 14.3 % 11.5-14.5 Platelet Count 281 x103 130-400 MPV 11.3 fl High 6.5-10.5 Segmented Neutrophils 67.3 % 44.0-74.0 Lymphocytes 21.8 % 15.0-45.0 Monocytes 8.5 % 2.0-13.0 Eosinophils 2.2 % 0.0-6.0 Basophils 0.2 % 0.0-2.0 Neutrophil Absolute 8.3 x103 High 1.4-7.0 Lymphocytes Absolute 2.7 x103 1.0-3.4 Monocyte Absolute 1.0 x103 0.2-1.0 Eosinophil Absolute 0.3 x103 0.0-0.5 Basophil Absolute 0.0 x103 0.0-0.2 Hemoglobin A1c 06/25/2008 [facility] Hemoglobin A1c 8.5 % AB 94 [phone] Estimated Avg Glucose 197.3 mg/dL Comprehensive 06/25/2008 [facility] Glucose 193 mg/dL High 70-100 Metabolic [phone] BUN 13 mg/dL 5-21 Creatinine, Serum 1.3 mg/dL 0.6-1.5 Sodium 140 mmol/L 136-146 Potassium 4.5 mmol/L 3.5-5.3 Chloride 104 mmol/L 98-110 Carbon Dioxide 19 mmol/L Low 20-32 Albumin 4.7 g/dL 3.5-4.7 Protein, Total 7.2 g/dL 6.4-8.3 Calcium 9.1 mg/dL 8.4-10.4 Alkaline Phosphatase 95 U/L 10-118 Sgot (Ast) 28 U/L 3-40 SGPT (Alt) 44 U/L 7-50 Bilirubin, Total 0.40 mg/dL 0.30-1.20 GFR (Calculated) 06/25/2008 [facility] GFR (Calculated) > 60 95 [phone] Lipid Profile 06/20/2008 [facility] Cholesterol, Total 168 mg/dL 120-2 96 [phone] HDL Cholesterol 33 mg/dL Low 40-60 LDL Cholesterol, Calc. 68 mg/dL 97 Triglycerides 337 mg/dL AB 98 LDL/HDL Cholesterol 2.1 99 Chol/HDL Cholesterol 5.1 AB 100 Laboratory test 06/20/2008 [facility] Glucose 174 mg/dL High 70-100 finding [phone] Urine DIP 06/20/2008 [facility] Leukocytes NEG Neg (607)- - Urine Nitrites NEG Neg Urine pH 5 5-6 Total Protein, Urine NEG Neg Urine Glucose NORM Norm Urine Ketones NEG Neg Urobilinogen NORM Norm Urine Bilirubin NEG Neg Urine Blood NEG Neg Specific [place] NEG Low 1.01-1.02 Laboratory test 10/11/2007 [facility] Surgical SEE NOTE 101 finding [phone] Pathology Lipid Profile 06/23/2007 [facility] Cholesterol/HD 6.71 AVERAGE High 1-4.9 (Trig/Chol/HDL) [phone] L Ratio 7 Cholesterol 161 mg/dL Less Than 200 102 Triglyceride 225 mg/dL High 40-200 High Density Lipoprotein 24 mg/dL Low 40-60 103 Low Density Lipoprotein 92 mg/dL Less Than 100 104 Laboratory test 06/23/2007 [facility] Glucose 105 mg/ dL 70-105 finding [phone] TSH 2.82 MIU/ML 0.34-5.60 Urine DIP 06/20/2007 [facility] Leukocytes NEG Neg (607)- - Urine Nitrites NEG Neg Urine pH 5 5-6 Total Protein, Urine NEG Neg Urine Glucose NORM Norm Urine Ketones NEG Neg Urobilinogen NORM Norm Urine Bilirubin NEG Neg Urine Blood NEG Neg Specific [place] NA Low 1.01-1.02 Laboratory test 04/17/2007 [facility] Stool For POS finding (607)- - Blood Laboratory test 09/27/2006 [facility] Strep Screen POS Neg finding (607)- - Lipid Profile 06/29/2006 [facility] Cholesterol, 157 mg/dL 120-200 105 [phone] Total HDL Cholesterol 32 mg/dL Low 40-60 LDL Cholesterol, Calc. 93 mg/dL 106 Triglycerides 161 mg/dL AB 107 LDL/HDL Cholesterol 2.9 108 Chol/HDL Cholesterol 4.9 109 Laboratory 06/29/2006 [facility] TSH (Thyrotropin) 4.680 0.350-5.500 test finding [phone] uIU/ml Urine DIP 06/28/2006 [facility] Leukocytes neg Neg (607)- - Urine Nitrites neg Neg Urine pH 5 5-6 Total Protein, Urine neg Neg Urine Glucose nor Norm Urine Ketones neg Neg Urobilinogen norm Norm Urine Bilirubin neg Neg Urine Blood neg Neg Specific [place] na Low 1.01-1.02 Protime 09/17/2005 [facility] Inr 0.98 110, 111 [phone] Protime 11.7 SEC 10.5-13.1 Laboratory test 09/17/2005 [facility] PTT (Aptt) 25.2 20.4-29.5 112 finding [phone] CBC With 09/17/2005 [facility] White Blood 11.4 CUMM High 4.8-10.8 Electronic Diff [phone] Count Abs Basophils 0 0-0.2 Abs Eosinophils 0.3 0-0.6 Absolute Neutrophil Count 7.4 1.5-7.7 Abs Lymphs 2.7 1.0-4.8 Abs Mononuclear 0.9 High 0-0.8 Basophil % 0.3 % 0-2 Hematocrit 48 % 42-52 Hemoglobin 16.8 g/dL 14.0-18.0 Eosinophil % 2.2 % 0-6 Gran % 65.4 % 38-83 Lymph % 23.8 % 20-45 Mean Corpuscular HGB Cone 35 g/dL 32-36 Mean Corpuscular Hemoglob 32 pg High 27-31 Mean Corpuscular Volume 92 um3 80-94 Mean Platelet Volume 8.7 um3 7.4-10.4 Mononuclear % 8.3 % 1-9 Platelet Count 320 CUMM 150-450 Red Cell Count 5.26 CUMM 4.6-6.2 Redcell Distribution WDTH 14 % 10.5-15 Urine DIP 06/22/2005 [facility] Leukocytes neg Urine Nitrites neg Urine pH 5 Total Protein, Urine norm Urine Glucose neg Urine Ketones neg Urobilinogen norm Urine Bilirubin norm Urine Blood neg Specific [place] n/a Urine DIP 06/10/2004 [facility] House [facility] Leukocytes NEG Neg (607)- - Urine Nitrites NEG Neg Urine pH 5 5-6 Total Protein Urine TRACE Neg Urine Glucose NL Norm Urine Ketones NL Neg Urobolinogen NL Norm Urine Bilirubin NL Neg Urine Blood NL Neg Specific [place] N/A 1.01-1.02 Laboratory test 06/08/2003 [facility] Alt (SGPT) 15 U /L Low 17-63 finding [phone] Ast (Sgot) 18 U/L 12-42 Lipid Profile 06/08/2003 [facility] Cholesterol/HDL 6.17 High 1-4.97 (Trig/Chol/HDL) [phone] Ratio AVERAGE Cholesterol 179 mg/dL Less Than 200 113 Triglyceride 161 mg/dL 40-200 High Density Lipoprotein 29 mg/dL Low 40-60 114 Low Density Lipoprotein 118 mg/dL High Less Than 100 115 Laboratory test 06/08/2003 [facility] Hepatitis B NEGATIVE Negative finding [phone] Surface AB Hepatitis C Antibody NEGATIVE Negative 1 [id number] 2 Therapeutic target for the treatment of diabetes mellitus patients is <7% HBA1C, and in selective patients <6.0%. Please refer to [place] [employer] diabetic care guidelines for further information. 3 Because ethnic data is not always readily available, this report includes an eGFR for both -Americans and non- Americans. The National Kidney Disease Education Program (NKDEP) does not endorse the use of the MDRD equation for patients that are not between the ages of 18 and 70, are , have extremes of body size, muscle mass, or nutritional status, or are non- or non-. According to the National Kidney Foundation, irrespective of diagnosis, the stage of the disease is based on the level of kidney function: Stage Description GFR(mL/min/1.73 m(2)) 1 Kidney damage with normal or decreased GFR 90 2 Kidney damage with mild decrease in GFR 60-89 3 Moderate decrease in GFR 30-59 4 Severe decrease in GFR 15-29 5 Kidney failure <15 (or dialysis) 4 Presumptive Positive Presumptive positive results are unconfirmed. 5 The urine specimen was tested at the listed cutoffs: Drug class test level (ng/mL) Amphetamines 500 Barbiturates 200 Benzodiazepine metabolites 200 Cocaine metabolites 150 Cannabinoids 50 Opiates 300 Pcp 25 Specimen was received without chain of custody. Results should be used for medical purposes only. 6 [facility] Severe Sepsis and Septic Shock Management Bundle Measure requires all lactic acids initially measuring >2.0 mmol/L be repeated. 7 Because ethnic data is not always readily available, this report includes an eGFR for both -Americans and non- Americans. The National Kidney Disease Education Program (NKDEP) does not endorse the use of the MDRD equation for patients that are not between the ages of 18 and 70, are , have extremes of body size, muscle mass, or nutritional status, or are non- or non-. According to the National Kidney Foundation, irrespective of diagnosis, the stage of the disease is based on the level of kidney function: Stage Description GFR(mL/min/1.73 m(2)) 1 Kidney damage with normal or decreased GFR 90 2 Kidney damage with mild decrease in GFR 60-89 3 Moderate decrease in GFR 30-59 4 Severe decrease in GFR 15-29 5 Kidney failure <15 (or dialysis) 8 Therapeutic target for the treatment of diabetes mellitus patients is <7% HBA1C, and in selective patients <6.0%. Please refer to [place] [employer] diabetic care guidelines for further information. 9 [id number] 11 Desirable: <150 Borderline High: 150-199 High: 200-499 Very High: >500 12 Desirable: <200 Borderline High: 200-239 High: >239 13 Low: <40 Desirable: 40-60 High: >60 14 Desirable: <100 Near Optimal: 100-129 Borderline High: 130-159 High: 160-189 Very High: >189 15 Unable to calculate due to low microalbumin 16 Therapeutic target for the treatment of diabetes Mellitus patients is <7% HBA1C, and in selective patients <6.0%.Please refer to [place] [employer] Diabetic care guidelines for further information. 17 [id number] 18 SEE RESULT BELOW Name: LUNA BUSH : [address]: Adrien Guido MD Acct: [id number] Unit: [id number] AGE: 45 Location: [facility] Re10/30/15 SEX: M Status: REG REF SPEC: [id number] FLEX: 10/30/15 [facility] [address]: Adrien Guido MD REQ: [id number] RECD: 10/30/15 STATUS: AALIYAH BRYAN DR: Yohana Chu MD _ ORDERED: LEVEL IV COMMENTS: [id number] FINAL DIAGNOSIS Skin, right index finger tip, excision: -- Verruca vulgaris. PRE-OPERATIVE DIAGNOSIS Verruca vulgaris GROSS DESCRIPTION The specimen is received in formalin labeled, Excision Skin Lesion Right Index Fingertip, and consists of a 0.6 x 0.6 x 0.2 cm irregular to ovoid cortez blue previously dyed volar skin fragment, which is inked, bisected and submitted entirely in one cassette. Signed (signature on file) Mavis Valdivia MD [id number] END OF REPORT * ML=Testing performed at Main Lab DEPARTMENT OF PATHOLOGY, [address] [place] [address] Alirio Soriano M.D. Director [facility] # [id number] 19 Therapeutic target for the treatment of diabetes Mellitus patients is <7% HBA1C, and in selective patients <6.0%.Please refer to [place] [employer] Diabetic care guidelines for further information. 20 Desirable <150 Borderline high 150-199 High 200-499 Very High >500 21 Desirable <200 Borderline high 200-239 High >239 22 Low <40 Desirable: 40-60 High: >60 23 Desirable: <100 mg/dL Near Optimal: 100-129 mg/dL Borderline High: 130-159 mg/dL High: 160-189 mg/dL Very High: >189 mg/dL 24 Because ethnic data is not always readily available, this report includes an eGFR for both -Americans and non- Americans. The National Kidney Disease Education Program (NKDEP) does not endorse the use of the MDRD equation for patients that are not between the ages of 18 and 70, are , have extremes of body size, muscle mass, or nutritional status, or are non- or non-. According to the National Kidney Foundation, irrespective of diagnosis, the stage of the disease is based on the level of kidney function: Stage Description GFR(mL/min/1.73 m(2)) 1 Kidney damage with normal or decreased GFR 90 2 Kidney damage with mild decrease in GFR 60-89 3 Moderate decrease in GFR 30-59 4 Severe decrease in GFR 15-29 5 Kidney failure <15 (or dialysis) 25 FASTING 26 Desirable <150 Borderline high 150-199 High 200-499 Very High >500 27 Desirable <200 Borderline high 200-239 High >239 28 Low <40 Desirable: 40-60 High: >60 29 Unable to calculate LDL as triglyceride is > 400 30 Therapeutic target for the treatment of diabetes Mellitus patients is <7% HBA1C, and in selective patients <6.0%.Please refer to [place] [employer] Diabetic care guidelines for further information. 31 Therapeutic target for the treatment of diabetes Mellitus patients is <7% HBA1C, and in selective patients <6.0%.Please refer to [place] [employer] Diabetic care guidelines for further information. 32 Because ethnic data is not always readily available, this report includes an eGFR for both -Americans and non- Americans. The National Kidney Disease Education Program (NKDEP) does not endorse the use of the MDRD equation for patients that are not between the ages of 18 and 70, are , have extremes of body size, muscle mass, or nutritional status, or are non- or non-. According to the National Kidney Foundation, irrespective of diagnosis, the stage of the disease is based on the level of kidney function: Stage Description GFR(mL/min/1.73 m(2)) 1 Kidney damage with normal or decreased GFR 90 2 Kidney damage with mild decrease in GFR 60-89 3 Moderate decrease in GFR 30-59 4 Severe decrease in GFR 15-29 5 Kidney failure <15 (or dialysis) 33 CHOLESTEROL INTERPRETATION: Desirable: Less than 200 MG/DL Borderline-High Risk: 200-239 MG/DL High-Risk: 240 MG/DL and over 34 HDL INTERPRETATION: Undesirable: High Risk: Less than 40 MG/DL Desirable: Low Risk: Greater than 60 MG/DL 35 UNABLE TO CALCULATE LDL TRIGLYCERIDE IS > 400 36 THERAPEUTIC TARGET FOR THE TREATMENT OF DIABETES [place]LLITUS PATIENTS IS <7% HBA1C, AND IN SELECTIVE PATIENTS <6.0%. PLEASE REFER TO [place] [employer] DIABETIC CARE GUIDELINES FOR FURTHER INFORMATION. 37 THERAPEUTIC TARGET FOR THE TREATMENT OF DIABETES MELLITUS PATIENTS IS <7% HBA1C, AND IN SELECTIVE PATIENTS <6.0%. PLEASE REFER TO [place] [employer] DIABETIC CARE GUIDELINES FOR FURTHER INFORMATION. 38 CHOLESTEROL INTERPRETATION: Desirable: Less than 200 MG/DL Borderline-High Risk: 200-239 MG/DL High-Risk: 240 MG/DL and over 39 HDL INTERPRETATION: Undesirable: High Risk: Less than 40 MG/DL Desirable: Low Risk: Greater than 60 MG/DL 40 UNABLE TO CALCULATE LDL TRIGLYCERIDE IS > 400 41 THERAPEUTIC TARGET FOR THE TREATMENT OF DIABETES MELLITUS PATIENTS IS <7% HBA1C, AND IN SELECTIVE PATIENTS <6.0%. PLEASE REFER TO [place] [employer] DIABETIC CARE GUIDELINES FOR FURTHER INFORMATION. 42 CHOLESTEROL INTERPRETATION: Desirable: Less than 200 MG/DL Borderline-High Risk: 200-239 MG/DL High-Risk: 240 MG/DL and over 43 HDL INTERPRETATION: Undesirable: High Risk: Less than 40 MG/DL Desirable: Low Risk: Greater than 60 MG/DL 44 LDL INTERPRETATION: Low Risk Optimal Level: LDL Less than 100 MG/DL Near or Above Optimal: LDL 100-129 MG/DL Borderline High Risk: LDL 130-159 MG/DL High Risk: LDL 160-189 MG/DL Very High Risk: LDL Greater than 189 MG/DL 45 Anion gap measurement may be of limited value in the presence of any alkalosis, especially in a combined acid base disorder. . 46 A metabolite of Naproxen, O-desmethylnaproxen, has been shown to interfere with the Jendrassik-Brenda method for measuring total bilirubin. Samples from patients who have taken Naproxen have shown spurious elevation in total bilirubin levels. 47 Because ethnic data is not always readily available, this report includes an eGFR for both -Americans and non- Americans. The National Kidney Disease Education Program (NKDEP) does not endorse the use of the MDRD equation for patients that are not between the ages of 18 and 70, are , have extremes of body size, muscle mass, or nutritional status, or are non- or non-. According to the National Kidney Foundation, irrespective of diagnosis, the stage of the disease is based on the level of kidney function: Stage Description GFR(mL/min/1.73 m(2)) 1 Kidney damage with normal or decreased GFR 90 2 Kidney damage with mild decrease in GFR 60-89 3 Moderate decrease in GFR 30-59 4 Severe decrease in GFR 15-29 5 Kidney failure <15 (or dialysis) 48 THERAPEUTIC TARGET FOR THE TREATMENT OF DIABETES [place]IT[place] PATIENTS IS <7% HBA1C, AND IN SELECTIVE PATIENTS <6.0%. PLEASE REFER TO [place] [employer] DIABETIC CARE GUIDELINES FOR FURTHER INFORMATION. 49 THERAPEUTIC TARGET FOR THE TREATMENT OF DIABETES MELLITUS PATIENTS IS <7% HBA1C, AND IN SELECTIVE PATIENTS <6.0%. PLEASE REFER TO [place] [employer] DIABETIC CARE GUIDELINES FOR FURTHER INFORMATION. 50 CHOLESTEROL INTERPRETATION: Desirable: Less than 200 MG/DL Borderline-High Risk: 200-239 MG/DL High-Risk: 240 MG/DL and over 51 HDL INTERPRETATION: Undesirable: High Risk: Less than 40 MG/DL Desirable: Low Risk: Greater than 60 MG/DL 52 LDL INTERPRETATION: Low Risk Optimal Level: LDL Less than 100 MG/DL Near or Above Optimal: LDL 100-129 MG/DL Borderline High Risk: LDL 130-159 MG/DL High Risk: LDL 160-189 MG/DL Very High Risk: LDL Greater than 189 MG/DL 53 LDL INTERPRETATION: Low Risk Optimal Level: LDL Less than 100 MG/DL Near or Above Optimal: LDL 100-129 MG/DL Borderline High Risk: LDL 130-159 MG/DL High Risk: LDL 160-189 MG/DL Very High Risk: LDL Greater than 189 MG/DL 54 THERAPEUTIC TARGET FOR THE TREATMENT OF DIABETES MELLITUS PATIENTS IS <7% HBA1C, AND IN SELECTIVE PATIENTS <6.0%. PLEASE REFER TO [place] [employer] DIABETIC CARE GUIDELINES FOR FURTHER INFORMATION. 55 CHOLESTEROL INTERPRETATION: Desirable: Less than 200 MG/DL Borderline-High Risk: 200-239 MG/DL High-Risk: 240 MG/DL and over 56 HDL INTERPRETATION: Undesirable: High Risk: Less than 40 MG/DL Desirable: Low Risk: Greater than 60 MG/DL 57 UNABLE TO CALCULATE LDL TRIGLYCERIDE IS > 400 58 THERAPEUTIC TARGET FOR THE TREATMENT OF DIABETES [place]LL[place]US PATIENTS IS <7% HBA1C, AND IN SELECTIVE PATIENTS <6.0%. PLEASE REFER TO [place] [employer] DIABETIC CARE GUIDELINES FOR FURTHER INFORMATION. 59 THERAPEUTIC TARGET FOR THE TREATMENT OF DIABETES MELL[place]US PATIENTS IS <7% HBA1C, AND IN SELECTIVE PATIENTS <6.0%. PLEASE REFER TO [place] [employer] DIABETIC CARE GUIDELINES FOR FURTHER INFORMATION. 60 CHOLESTEROL INTERPRETATION: Desirable: Less than 200 MG/DL Borderline-High Risk: 200-239 MG/DL High-Risk: 240 MG/DL and over 61 HDL INTERPRETATION: Undesirable: High Risk: Less than 40 MG/DL Desirable: Low Risk: Greater than 60 MG/DL 62 UNABLE TO CALCULATE LDL TRIGLYCERIDE IS > 400 63 THERAPEUTIC TARGET FOR THE TREATMENT OF DIABETES [place]LL[place]US PATIENTS IS <7% HBA1C, AND IN SELECTIVE PATIENTS <6.0%. PLEASE REFER TO [place] [employer] DIABETIC CARE GUIDELINES FOR FURTHER INFORMATION. 64 CHOLESTEROL INTERPRETATION: Desirable: Less than 200 MG/DL Borderline-High Risk: 200-239 MG/DL High-Risk: 240 MG/DL and over 65 HDL INTERPRETATION: Undesirable: High Risk: Less than 40 MG/DL Desirable: Low Risk: Greater than 60 MG/DL 66 UNABLE TO CALCULATE LDL TRIGLYCERIDE IS > 400 67 LDL INTERPRETATION: Low Risk Optimal Level: LDL Less than 100 MG/DL Near or Above Optimal: LDL 100-129 MG/DL Borderline High Risk: LDL 130-159 MG/DL High Risk: LDL 160-189 MG/DL Very High Risk: LDL Greater than 189 MG/DL 68 Anion gap measurement may be of limited value in the presence of any alkalosis, especially in a combined acid base disorder. . 69 Note change in reference range as of 11/30/07. The change was based on recommendations from the [place] [employer]. 70 Please note change in reference range effective 07 . 71 A metabolite of Naproxen, O-desmethylnaproxen, has been shown to interfere with the Jendrassik-Malo method for measuring total bilirubin. Samples from patients who have taken Naproxen have shown spurious elevation in total bilirubin levels. 72 Because ethnic data is not always readily available, this report includes an eGFR for both -Americans and non- Americans. The National Kidney Disease Education Program (NKDEP) does not endorse the use of the MDRD equation for patients that are not between the ages of 18 and 70, are , have extremes of body size, muscle mass, or nutritional status, or are non- or non-. According to the National Kidney Foundation, irrespective of diagnosis, the stage of the disease is based on the level of kidney function: Stage Description GFR(mL/min/1.73 m(2)) 1 Kidney damage with normal or decreased GFR 90 2 Kidney damage with mild decrease in GFR 60-89 3 Moderate decrease in GFR 30-59 4 Severe decrease in GFR 15-29 5 Kidney failure <15 (or dialysis) 73 MICROALBUMINURIA IN A RANDOM SAMPLE IS DEFINED : MICROALBUMIN/CREATININE RATIO OF 30-299 ug/mg. . 74 THERAPEUTIC TARGET FOR THE TREATMENT OF DIABETES MELLITUS PATIENTS IS <7% HBA1C, AND IN SELECTIVE PATIENTS <6.0%. PLEASE REFER TO [place] [employer] DIABETIC CARE GUIDELINES FOR FURTHER INFORMATION. 75 THERAPEUTIC TARGET FOR THE TREATMENT OF DIABETES MELLITUS PATIENTS IS <7% HBA1C, AND IN SELECTIVE PATIENTS <6.0%. PLEASE REFER TO [place] [employer] DIABETIC CARE GUIDELINES FOR FURTHER INFORMATION. 76 CHOLESTEROL INTERPRETATION: Desirable: Less than 200 MG/DL Borderline-High Risk: 200-239 MG/DL High-Risk: 240 MG/DL and over 77 HDL INTERPRETATION: Undesirable: High Risk: Less than 40 MG/DL Desirable: Low Risk: Greater than 60 MG/DL 78 LDL INTERPRETATION: Low Risk Optimal Level: LDL Less than 100 MG/DL Near or Above Optimal: LDL 100-129 MG/DL Borderline High Risk: LDL 130-159 MG/DL High Risk: LDL 160-189 MG/DL Very High Risk: LDL Greater than 189 MG/DL 79 LDL INTERPRETATION: Low Risk Optimal Level: LDL Less than 100 MG/DL Near or Above Optimal: LDL 100-129 MG/DL Borderline High Risk: LDL 130-159 MG/DL High Risk: LDL 160-189 MG/DL Very High Risk: LDL Greater than 189 MG/DL 80 . A negative result does not preclude the presence of a C.trachomatis or N.gonorrhoeae infection because results are dependent on adequate specimen collection, absence of inhibitors, and sufficient rRNA to be detected. Test results may be affected by improper specimen collection, improper specimen storage, technical error, or specimen mixup. . 81 . A negative result does not preclude the presence of a C.trachomatis or N.gonorrhoeae infection because results are dependent on adequate specimen collection, absence of inhibitors, and sufficient rRNA to be detected. Test results may be affected by improper specimen collection, improper specimen storage, technical error, or specimen mixup. . 82 Anion gap measurement may be of limited value in the presence of any alkalosis, especially in a combined acid base disorder. . 83 Note change in reference range as of 11/30/07. The change was based on recommendations from the [place] [employer]. 84 Please note change in reference range effective 07 . 85 A metabolite of Naproxen, O-desmethylnaproxen, has been shown to interfere with the Jendrassik-Brenda method for measuring total bilirubin. Samples from patients who have taken Naproxen have shown spurious elevation in total bilirubin levels. 86 CHOLESTEROL INTERPRETATION: Desirable: Less than 200 MG/DL Borderline-High Risk: 200-239 MG/DL High-Risk: 240 MG/DL and over 87 HDL INTERPRETATION: Undesirable: High Risk: Less than 40 MG/DL Desirable: Low Risk: Greater than 60 MG/DL 88 UNABLE TO CALCULATE LDL TRIGLYCERIDE IS > 400 89 THERAPEUTIC TARGET FOR THE TREATMENT OF DIABETES [place]LL[place]US PATIENTS IS <7% HBA1C, AND IN SELECTIVE PATIENTS <6.0%. PLEASE REFER TO [place] [employer] DIABETIC CARE GUIDELINES FOR FURTHER INFORMATION. 90 Anion gap measurement may be of limited value in the presence of any alkalosis, especially in a combined acid base disorder. . 91 Note change in reference range as of 11/30/07. The change was based on recommendations from the [place] [employer]. 92 Please note change in reference range effective 07 . 93 A metabolite of Naproxen, O-desmethylnaproxen, has been shown to interfere with the Jendrassik-Malo method for measuring total bilirubin. Samples from patients who have taken Naproxen have shown spurious elevation in total bilirubin levels. 94 HGBA1C (%) GLUCOSE CONTROL >8 Action Suggested <7 Goal 95 mL/min/1.73m2 . Normal Function or Mild Renal Disease, if clinically at risk: >or=60 Moderately decreased: 30 - 59 Severely decreased: 15 - 29 Renal Failure: <15 . Please note that the MDRD equation requires an additional adjustment for -Americans (multiply the GFR result by 1.210). . Glomerular Filtration Rate (GFR) is estimated based on the MDRD equation, which assumes a steady state for creatinine (Griselda Int Med 139/2 137-149, 2003), as recommended by the National Kidney Disease Education Program in conjunction with the National Institutes of Health and the National Kidney Foundation. . Clinical conditions in which it may be necessary to measure GFR by using clearance methods include extremes of age and body size, severe malnutrition or obesity, diseases of skeletal muscle, paraplegia or quadriplegia, vegetarian diet, rapidly changing kidney function, and calculation of the dose of potentially toxic drugs that are excreted by the kidneys. 96 Cholesterol Risk Levels (NIH) Recommended: under 200 mg/dl Borderline : 200-239 mg/dl High Risk : Above 240 mg/dl 97 The National Cholesterol Education Program recommends the following ranges for LDL Cholesterol: Optimal under 100 mg/dl Near or above Optimal 100 - 129 mg/dl Borderline High 130 - 159 mg/dl High 160 - 189 mg/dl Very High above 190 mg/dl 98 Triglyceride Risk Levels: Normal : <150 mg/dl Borderline : 150-199 mg/dl High : 200-499 mg/dl Very High : >500 mg/dl 99 LDL/HDL Risk Ratio Levels MALE FEMALE 1/2 X Average 1.00 1.47 Average 3.55 3.22 2 X Average 6.25 5.03 3 X Average 7.99 6.14 100 CHOL/HDL Risk Ratio Levels MALE FEMALE 1/2 X Average 3.4 3.3 Average 5.0 4.4 2 X Average 9.5 7.0 3 X Average 24.0 11.0 101 [facility]. DEPARTMENT OF PATHOLOGY or Extension 82 SURGICAL PATHOLOGY REPORT PATIENT: LUNA BUSH : 1970 AGE: 37 Y SEX: M ACCT: [id number] PROCEDURE DATE: 10/11/2007 DATE RECEIVED: 10/12/2007 REQUESTING PHYSICIAN: YOHANA CHU MD LOCATION: [facility] Case No. [id number] FINAL DIAGNOSIS: SKIN, RIGHT LEG, BIOPSY: DERMATOFIBROMA/BENIGN FIBROUS HISTIOCYTOMA. /[facility] D/T 10/16/07 GROSS DESCRIPTION: Received in formalin, labeled Luna Bush and with the lab #[id number], consists of a 0.65 x 0.65 cm and excised to a depth of 0.5 cm off-white, hair-bearing punched segments of skin with a slightly off-center 0.4 x 0.25 cm white rimmed, luciano-yellow, friable, scabbed centered papule. The base contains firm, subcutaneous tissue. The margin is inked black. It is bisected. TS/1 /[facility] D/T 10/12/07 CLINICAL DATA: [id number] 1 YEAR GROWING BLEEDING SPECIMEN SUBMITTED: LESION, PAPULE RIGHT LEG ADDITIONAL COPIES SENT TO: Electronically Signed by: Signed Date THAIS VASQUEZ MD 10/16/2007 15:08 Performed @ [facility], [address] [place] [address] 102 Classification: Desirable . 103 Classification: Low . 104 CALCULATED LDL APPROXIMATES THE VALUE OF A DIRECT LDL MEASUREMENT. Classification: Optimal Level . 105 Cholesterol Risk Levels (NIH) Recommended: under 200 mg/dl Borderline : 200-239 mg/dl High Risk : Above 240 mg/dl 106 The National Cholesterol Education Program recommends the following ranges for LDL Cholesterol: Optimal under 100 mg/dl Near or above Optimal 100 - 129 mg/dl Borderline High 130 - 159 mg/dl High 160 - 189 mg/dl Very High above 190 mg/dl 107 Triglyceride Risk Levels: Normal : <150 mg/dl Borderline : 150-199 mg/dl High : 200-499 mg/dl Very High : >500 mg/dl 108 LDL/HDL Risk Ratio Levels MALE FEMALE 1/2 X Average 1.00 1.47 Average 3.55 3.22 2 X Average 6.25 5.03 3 X Average 7.99 6.14 109 CHOL/HDL Risk Ratio Levels MALE FEMALE 1/2 X Average 3.4 3.3 Average 5.0 4.4 2 X Average 9.5 7.0 3 X Average 24.0 11.0 110 SDS 09/23/05 111 MARYANN VALUE=1.85 ( OF 04/22/04) Recommended INR for Patients on Oral Anticoagulants Prophylaxis 2.0 - 3.0 Treatment of thrombosis 2.0 - 3.0 Prevention of embolism 2.0 - 3.0 Prevention of embolism from prosthetic heart valves 2.5 - 3.5 112 PLEASE NOTE NEW REFERENCE RANGE EFFECTIVE 05 113 Classification: Desirable . 114 Classification: Low . 115 CALCULATED LDL APPROXIMATES THE VALUE OF A DIRECT LDL MEASUREMENT. Classification: Near or above optimal . Procedures Date Code Description Status 08/21/2009 55840 EKG, at Least 12 Leads w/Interpretation and Report Completed 10/11/2007 11639 Excision Of Lesion (Trunk,Arm,Leg) .6 To 1 CM. Completed Encounters Type Date Location Provider Dx Diagnosis Office Visit 03/23/2018 4:45p Yaneth Barron MD M54.2 Cervicalgia R53.1 Weakness M54.12 Radiculopathy, cervical region E11.65 Type 2 diabetes mellitus with hyperglycemia Office Visit 03/28/2017 8:45a Main Office Rafita Barron MD M54.2 Cervicalgia M25.511 Pain in right shoulder E11.65 Type 2 diabetes mellitus with hyperglycemia Office Visit 03/14/2017 3:15p Main Office Rafita Barron MD M54.2 Cervicalgia M25.511 Pain in right shoulder Office Visit 01/31/2017 2:15p Main Office Kaykay J06.9 Acute upper [place], [employer] respiratory infection, unspecified Office Visit 11/27/2015 4:15p Main Office Yohana Chu E11.65 Type 2 diabetes M.D. mellitus with hyperglycemia Office Visit 08/28/2015 4:30p Main Office Yohana Chu E11.65 Type 2 diabetes M.D. mellitus with hyperglycemia L72.0 Epidermal cyst Z72.0 Tobacco use Office Visit 06/25/2015 10:45a Main Office Yohana Chu E11.65 Type 2 diabetes M.D. mellitus with hyperglycemia M54.2 Cervicalgia Z72.0 Tobacco use L60.3 Nail dystrophy Office Visit 06/11/2015 9:15a Main Office Rafita Barron E11.65 Type 2 diabetes MD mellitus with hyperglycemia Z72.0 Tobacco use Office Visit 06/09/2015 10:30a Main Office Rafita Barron MD M54.2 Cervicalgia E11.65 Type 2 diabetes mellitus with hyperglycemia M25.511 Pain in right shoulder Office Visit 09/20/2013 10:15a Main Office Yohana Chu M.D. 250.02 Diabetes Mellitus W/O Compl Type II Or Unspec Type Uncontrol 272.0 Hypercholesterolemia Pure 278.00 Obesity Unspec Office Visit 05/03/2012 9:30a Main Office Yohana Chu M.D. 250.02 Diabetes Mellitus W/O Compl Type II Or Unspec Type Uncontrol 719.41 Pain Joint Shoulder Region 278.00 Obesity Unspec Office Visit 11/24/2011 10:00a Main Office Yohana Chu M.D. 250.02 Diabetes Mellitus W/O Compl Type II Or Unspec Type Uncontrol 272.0 Hypercholesterolemia Pure Office Visit 09/02/2011 9:30a Main Office Yohana Chu M.D. 250.02 Diabetes Mellitus W/O Compl Type II Or Unspec Type Uncontrol V06.1 Ulaeyvobjk-Jmrwyhb-Wowotfcv Combined (DTaP) Office Visit 07/01/2011 9:45a Main Office Yohana Chu M.D. 250.02 Diabetes Mellitus W/O Compl Type II Or Unspec Type Uncontrol 272.0 Hypercholesterolemia Pure 278.00 Obesity Unspec 305.1 Tobacco Use Disorder Office Visit 03/24/2011 9:45a Main Office Yohana Chu M.D. 250.02 Diabetes Mellitus W/O Compl Type II Or Unspec Type Uncontrol 272.0 Hypercholesterolemia Pure 278.00 Obesity Unspec Office Visit 12/23/2010 9:45a Main Office Yohana Chu M.D. 250.02 Diabetes Mellitus W/O Compl Type II Or Unspec Type Uncontrol 305.1 Tobacco Use Disorder 272.0 Hypercholesterolemia Pure Office Visit 09/18/2010 11:15a Main Office Yohana Chu M.D. 250.02 Diabetes Mellitus W/O Compl Type II Or Unspec Type Uncontrol 272.0 Hypercholesterolemia Pure Office Visit 06/11/2010 9:45a Main Office Yohana Chu M.D. 250.02 Diabetes Mellitus W/O Compl Type II Or Unspec Type Uncontrol 272.0 Hypercholesterolemia Pure 305.1 Tobacco Use Disorder 278.00 Obesity Unspec Office Visit 03/13/2010 10:15a Main Office Yohana Chu M.D. 250.02 Diabetes Mellitus W/O Compl Type II Or Unspec Type Uncontrol 272.0 Hypercholesterolemia Pure 305.1 Tobacco Use Disorder Office Visit 12/23/2009 9:45a Main Office Yohana Chu M.D. 250.02 Diabetes Mellitus W/O Compl Type II Or Unspec Type Uncontrol 787.1 Heartburn 272.0 Hypercholesterolemia Pure 305.1 Tobacco Use Disorder Office Visit 10/28/2009 8:45a Main Office Anna Cornejo 717.9 Internal Derangement BIANCA Kowalski-Roderick Knee Unspec Office Visit 08/21/2009 9:45a Main Office Yohana Chu M.D. V70.0 Examination General Medical Routine AT Health Care Facility 250.02 Diabetes Mellitus W/O Compl Type II Or Unspec Type Uncontrol 272.0 Hypercholesterolemia Pure 305.1 Tobacco Use Disorder 278.00 Obesity Unspec Office Visit 04/15/2009 9:30a Main Office Yohana Chu M.D. 250.02 Diabetes Mellitus W/O Compl Type II Or Unspec Type Uncontrol 272.0 Hypercholesterolemia Pure 305.1 Tobacco Use Disorder 278.00 Obesity Unspec Office Visit 01/03/2009 9:45a Main Office Yohana Chu M.D. 250.02 Diabetes Mellitus W/O Compl Type II Or Unspec Type Uncontrol 272.0 Hypercholesterolemia Pure 278.00 Obesity Unspec 305.1 Tobacco Use Disorder Office Visit 09/27/2008 11:00a Main Office Yohana Chu M.D. 250.02 Diabetes Mellitus W/O Compl Type II Or Unspec Type Uncontrol 272.0 Hypercholesterolemia Pure 278.00 Obesity Unspec 305.1 Tobacco Use Disorder Office Visit 07/30/2008 10:00a Main Office Yohana Chu M.D. 250.02 Diabetes Mellitus W/O Compl Type II Or Unspec Type Uncontrol 305.1 Tobacco Use Disorder Office Visit 06/27/2008 10:00a Main Office Yohana Chu 250.02 Diabetes Mellitus M.D. W/O Compl Type II Or Unspec Type Uncontrol Office Visit 06/20/2008 8:45a Main Office Yohana Chu V70.0 Examination General M.D. Medical Routine AT Health Care Facility 272.0 Hypercholesterolemia Pure 278.00 Obesity Unspec 305.1 Tobacco Use Disorder 787.1 Heartburn 790.21 Impaired Fasting Glucose 110.3 Dermatophytosis Groin & Perianal Area Office Visit 09/20/2007 10:30a Main Office Yohana Chu, 782.9 Skin & Integumentary M.D. Tissue Other Symptoms 305.1 Tobacco Use Disorder 278.00 Obesity Unspec Office Visit 08/18/2007 11:00a Main Office Wendi Petersen 372.30 Conjuctivitis Unspec Dharmesh, F.N.P.C. Office Visit 06/20/2007 2:30p Main Office Yohana Chu V70.0 Examination General M.D. Medical Routine AT Health Care Facility 272.0 Hypercholesterolemia Pure 278.00 Obesity Unspec 305.1 Tobacco Use Disorder Office Visit 04/17/2007 2:15p Main Office Anna Cornejo 564.00 Constipation Storm, [employer] Unspecified Office Visit 09/27/2006 11:30a Main Office Wendi Petersen 034.0 Streptococcal Sore Dharmesh, Throat F.N.P.C. Office Visit 06/28/2006 9:45a Main Office Yohana Chu V70.0 Examination General M.D. Medical Routine AT Health Care Facility 272.0 Hypercholesterolemia Pure 278.00 Obesity Unspec 305.1 Tobacco Use Disorder Office Visit 02/21/2006 4:00p Main Office Paulino Jackie, 465.9 URI Upper M.D. Respiratory Infections Acute Unspec Sites Office Visit 08/03/2005 3:00p Main Office Yohana Chu M.D. 726.31 Epicondylitis Medial 717.40 Derangement Lateral Meniscus Unspec 305.1 Tobacco Use Disorder Office Visit 06/22/2005 8:45a Main Office Yohana Chu M.D. 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 305.1 Tobacco Use Disorder 278.00 Obesity Unspec 382.00 Otitis Media Suppurative Acute Office Visit 06/25/2004 3:45p Main Office Yohana Chu M.D. 382.00 Otitis Media Suppurative Acute Office Visit 06/15/2004 4:15p Main Office Soo Ornelas 382.00 Otitis Media Curt Barksdale Suppurative Acute Office Visit 06/10/2004 8:45a Main Office Yohana Chu M.D. V70.0 Examination General Medical Routine AT Health Care Facility 305.1 Tobacco Use Disorder 278.00 Obesity Unspec 719.44 Pain Joint Hand 380.22 Otitis Externa Other Acute Office Visit 02/12/2004 10:30a Main Office Yohana Chu 727.05 Tenosynovitis Hand & M.D. Wrist Other Office Visit 12/06/2003 11:15a Main Office Wendi Petersen 904.9 Injury Blood Dharmesh, Vessel(S) Lower F.N.P.C. Extrem Unspec Site Office Visit 06/06/2003 1:15p Main Office Yohana Chu V70.0 Examination General M.D. 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 It has been several months since his injury in the car working. Anterolisthesis on X-rays per his chiropractor.Has not done any PT appointments. He was on gabapentin and tizanadine, but his symptoms persist. Also using naproxen.Follow up:Temporary handicapped permit.M54.2 CervicalgiaComments:Loss of curvature on X-r per chiropractic.
[2018-08-20 14:29] VITALS: BP 111/79
== END 2018-08-20 14:27 | disposition home or self-care (01) ==
LOC: ED 13:27
DX: M23.92 Unspecified internal derangement of left knee (principal); M25.462 Effusion, left knee
CPT/HCPCS: 99282

== ENCOUNTER 2021-02-22 16:34 | Observation (INO) ==
[2021-02-22] MEDS ORDERED: NS 0.9% 1000 ml BAG 1,000 ML IV.FLUID IV ONE (17:34)
[2021-02-22 18:45] LABS: Venous Bicarbonate HCO3 25.5 mmol/L (24-28)
[2021-02-22 18:46] LABS: ABS Eosinophils 0.1 10^3/ul (0-0.6); ABS Lymphocytes 1.2 10^3/ul (1.0-4.8); ABS Monocytes 1.5 10^3/ul (0-0.8); ABS Neutrophils 11.9 10^3/ul (1.5-7.7); Eosinophil % 0.5 %; Hematocrit 53 % (42-52); Hemoglobin 18.6 g/dL (14.0-18.0); Lymphocyte % 8.2 %; Mean Corpuscular HGB Conc 35 g/dL (31-36); Mean Corpuscular Hemoglobin 32 pg (27-31); Mean Corpuscular Volume 93 fL (80-94); Mean Platelet Volume 9.5 fL (7.4-10.4); Platelet Count 242 10^3/uL (150-450); Red Blood Count 5.73 10^6 /uL (4.18-5.48); Red Cell Distribution Width 14 % (10-15); White Blood Count 14.7 10^3/uL (3.5-10.8)
[2021-02-22 18:52] LABS: Activated Partial Thrombo Time 32.5 seconds (26.0-38.0); INR 1.07 (0.86-1.15)
[2021-02-22 19:02] LABS: ALT 16 U/L (7-52); Albumin 4.5 g/dL (3.2-5.2); Albumin/Globulin Ratio 1.4 (1-3); Alkaline Phosphatase 92 U/L (35-149); Blood Urea Nitrogen 8 mg/dL (6-24); C Reactive Protein 62.42 mg/L (<8.01); CO2 Carbon Dioxide 25 mmol/L (22-32); Calcium 9.2 mg/dL (8.6-10.3); Chloride 98 mmol/L (101-111); Globulin 3.2 g/dL (2-4); Glucose 249 mg/dL (70-100); Sodium 131 mmol/L (135-145); Total Protein 7.7 g/dL (6.4-8.9)
[2021-02-22] MEDS ORDERED: Azithromycin 500 mg/250 ml NS 500 MG/250 ML BAG IVPB ONE (19:04)
[2021-02-22] MEDS ORDERED: cefTRIAXone 1 gm/50 mL NS BAG 1 GM/50 ML BAG IV ONE (19:04)
[2021-02-22 19:13] LABS: Influenza A Molecular Negative (Negative); Influenza B Molecular Negative (Negative)
[2021-02-22 19:22] LABS: Ferritin 497.2 ng/mL (24-336)
[2021-02-22 19:26] LABS: Anion Gap 8 mmol/L (2-11)
[2021-02-22 20:56] LABS: Potassium Redraw 2.2 mmol/L (3.5-5.0)
[2021-02-22] MEDS ORDERED: KCL 20 MEQ/100 ML IVPREMIX 20 MEQ/100 ML BAG IV ONE (20:56)
[2021-02-22] MEDS ORDERED: Al Hydrox/Mg Hydrox/Simet LIQ 30 ML UDC PO PRN (22:11)
[2021-02-22 22:29] LABS: Rapid COVID-19 Molecular Undetected (Undetected)
[2021-02-22] MEDS ORDERED: Dextrose 50% Syringe 50 ml 25 GM/50 ML SYRINGE IV PUSH PRN (22:39)
[2021-02-22] MEDS: Potassium Chlor 20 meq TAB.ER PO SCH (23:03)
[2021-02-23] MEDS ORDERED: NS 0.9% 500 ml BAG 500 ML IV SCH (01:00)
[2021-02-23] MEDS: Potassium Chlor 20 meq TAB.ER PO SCH (01:37)
[2021-02-23] MEDS ORDERED: Magnesium Sulfate 2 gm BAG 2 GM/50 ML BAG IVPB ONE (02:11)
[2021-02-23 03:47] LABS: Cholesterol 174 mg/dL; HDL Cholesterol 32.3 mg/dL; LDL Cholesterol 102 mg/dL; Triglycerides 201 mg/dL
[2021-02-23 06:14] LABS: Hematocrit 49 % (42-52); Mean Corpuscular HGB Conc 35 g/dL (31-36); Mean Corpuscular Hemoglobin 33 pg (27-31); Mean Corpuscular Volume 94 fL (80-94); Mean Platelet Volume 9.7 fL (7.4-10.4); Platelet Count 260 10^3/uL (150-450); Red Blood Count 5.18 10^6 /uL (4.18-5.48); Red Cell Distribution Width 14 % (10-15); White Blood Count 11.1 10^3/uL (3.5-10.8)
[2021-02-23 06:25] LABS: ABS Basophils 0.1 10^3/ul (0-0.2); ABS Eosinophils 0.2 10^3/ul (0-0.6); ABS Monocytes 1.6 10^3/ul (0-0.8); ABS Neutrophils 7.3 10^3/ul (1.5-7.7); Eosinophil % 1.8 %; Lymphocyte % 18.1 %
[2021-02-23 06:47] LABS: Blood Urea Nitrogen 8 mg/dL (6-24); CO2 Carbon Dioxide 21 mmol/L (22-32); Calcium 8.2 mg/dL (8.6-10.3); Chloride 105 mmol/L (101-111); Glucose 161 mg/dL (70-100); Sodium 133 mmol/L (135-145)
[2021-02-23 06:56] LABS: Anion Gap 7 mmol/L (2-11)
[2021-02-23 08:06] LABS: Magnesium 2.5 mg/dL (1.9-2.7); Potassium Redraw 4.4 mmol/L (3.5-5.0)
[2021-02-23 12:20] VITALS: BP 111/63
== END 2021-02-23 17:00 | disposition home or self-care (01) ==
LOC: EDHOLD 16:34 → ED 16:34 → SUATTDRO 22:11 → MED 02-23 03:58
PROVIDERS: ADMIT Internal Medicine; ATTEND Internal Medicine